=== PATIENT | female | born 1980 | race Caucasian/White ===

== ENCOUNTER 2019-04-02 11:11 | Emergency (ER) | payer SELFPAY ==
[2019-04-02] MEDS ORDERED: ACETAMINOPHEN 500 MG TAB ONE (11:49)
[2019-04-02] MEDS ORDERED: IBUPROFEN 400 MG TAB ONE (11:49)
--- NOTE | 2019-04-02 12:12 | RAD REPORT ---
EXAM DESCRIPTION: RAD - Knee Right 3 View - 04/02/2019 11:56 am CLINICAL HISTORY: Right knee pain and swelling COMPARISON: None. FINDINGS: No fracture, dislocation or periosteal reaction.Small joint effusion is seen. No joint spa ce narrowing. No foreign body or other soft tissue abnormality. IMPRESSION: Small joint effusion is suspected with no acute bone finding. Clinical concerns for internal derangement or occult bony injury could be further assessed with MR im aging.
--- NOTE | 2019-04-02 12:29 | ER ---
Nurse's Notes [facility] Name: Fatuma Elias Age: 38 yrs Sex: Female : 1980 Arrival Date: 04/02/2019 Time: 11:14 Bed 6 Private MD: Unknown, Unknown Diagnosis: Pain in right knee Presentation: 04/02 11:35 Presenting complaint: Patient states: R knee pain x 1 week. No known injury. Also ss reports over the past 2-3 days it has been getting swollen when she stands for over 1 hour. Transition of care: patient was not received from another setting of care. Onset of symptoms was March 26, 2019. Risk Assessment: Do you want to hurt yourself or someone else? Patient reports no desire to harm self or others. Initial Sepsis Screen: Does the patient meet any 2 criteria? No. Patient's initial sepsis screen is negative. Does the patient have a suspected source of infection? No. Patient's initial sepsis screen is negative. Care prior to arrival: None. 11:35 Method Of Arrival: Ambulatory ss 11:35 Acuity: YON 4 ss Historical: - Allergies: 11:42 PENICILLINS; ss 11:42 Sulfa (Sulfonamide Antibiotics); ss - Home Meds: 12:22 Wellbutrin Oral [Active]; Antihypertensive [Active]; aa5 - PMHx: 12:22 Hypertension; Depression; Anxiety; aa5 - Immunization history:: Adult Immunizations unknown. - Social history:: Smoking status: Patient uses tobacco products, denies chronic smoking, but will smoke occasionally. - Ebola Screening: : Patient denies exposure to infectious person Patient denies travel to an Ebola-affected area in the 21 days before illness onset. Screenin:22 Abuse screen: Denies threats or abuse. Nutritional screening: No deficits noted. aa5 Tuberculosis screening: No symptoms or risk factors identified. Fall Risk None identified. Assessment: 11:50 Reassessment: To bedside to administer medications, pt currently at radiology . aa5 12:21 Reassessment: Pt back from US . aa5 12:21 General: Appears comfortable, Behavior is calm, cooperative. Pain: Complains of pain in aa5 right knee Pain currently is 3 out of 10 on a pain scale. Quality of pain is described as aching, Is continuous, Aggravated by increased activity, weight bearing. Neuro: Level of Consciousness is awake, alert, obeys commands, Oriented to person, place, time, situation. Cardiovascular: Patient's skin is warm and dry. Respiratory: Airway is patent Respiratory effort is even, unlabored, Respiratory pattern is regular, symmetrical. GI: No signs and/or symptoms were reported involving the gastrointestinal system. : No signs and/or symptoms were reported regarding the genitourinary system. EENT: No signs and/or symptoms were reported regarding the EENT system. Derm: Skin is pink, warm \T\ dry. Musculoskeletal: Range of motion: intact in all extremities, Swelling present in right knee. 12:45 Reassessment: Patient is alert, oriented x 3, equal unlabored respirations, skin aa5 warm/dry/pink. 12:45 Reassessment: Adriano wrap applied to right knee . aa5 Vital Signs: 11:34 BP 120 / 75; Pulse 92; Resp 17; Pulse Ox 99% on R/A; Weight 108.86 kg; Height 5 ft. 9 ss in. (175.26 cm); Pain 3/10; 11:34 Body Mass Index 35.44 (108.86 kg, 175.26 cm) ss ED Course: 11:14 Patient arrived in ED. ag5 11:15 Unknown, Unknown is Private Physician. ag5 11:25 Bridger Romero PA is PHCP. cp 11:25 Colton Spence MD is Attending Physician. cp 11:29 Silvia Kennedy, KALEN is Primary Nurse. aa5 11:34 Arm band placed on left wrist. ss 11:41 Triage completed. ss 11:56 XRAY Knee RIGHT 3 view In Process Unspecified. EDMS 12:21 Patient has correct armband on for positive identification. Bed in low position. Call aa5 light in reach. Side rails up X 1. 12:25 Ultrasound completed. Patient tolerated well. sg3 12:27 US Extremity Venous Unilateral Ltd In Process Unspecified. EDMS 12:28 Martin Garner MD is Referral Physician. cp 12:45 No provider procedures requiring assistance completed. Patient did not have IV access aa5 during this emergency room visit. Administered Medications: 12:22 Drug: Ibuprofen 800 mg Route: PO; aa5 12:45 Follow up: Response: No adverse reaction aa5 12:22 Drug: Tylenol 1000 mg Route: PO; aa5 12:45 Follow up: Response: No adverse reaction aa5 Outcome: 12:29 Discharge ordered by . cp 12:43 Discharged to home ambulatory. aa5 12:43 Condition: stable 12:43 Discharge instructions given to patient, Instructed on discharge instructions, follow up and referral plans. medication usage, Demonstrated understanding of instructions, follow-up care, medications, Prescriptions given X 1. 12:45 Patient left the ED. aa5 Signatures: Dispatcher [employer] EDSilvia Cancino RN RN aa5 Brianna Gandhi RN RN ss Bridger Romero, PA PA Perla Smith 3 Sania Berrios 5
--- NOTE | 2019-04-02 12:30 | EDPHYS ---
Physician Documentation [facility] Name: Fatuma Elias Age: 38 yrs Sex: Female : 1980 Arrival Date: 04/02/2019 Time: 11:14 Bed 6 Private MD: Unknown, Unknown ED Physician Colton Spence HPI: 04/02 11:45 This 38 yrs old Female presents to ER via Ambulatory with complaints of Knee cp Pain. 11:45 The patient presents with pain, that is acute, swelling, tenderness. The complaints cp affect the posterior aspect of right knee and medial aspect of right knee. Context: resulted from an unknown cause, the patient can fully bear weight, the patient is able to ambulate. Onset: The symptoms/episode began/occurred 1 week(s) ago. Modifying factors: the symptoms are aggravated by movement, weight bearing. 11:45 Associated signs and symptoms: Pertinent positives: swelling, Pertinent negatives cp fever, numbness, warmth, weakness. Treatment prior to arrival includes: no previous treatment. Historical: - Allergies: 11:42 PENICILLINS; ss 11:42 Sulfa (Sulfonamide Antibiotics); ss - Home Meds: 12:22 Wellbutrin Oral [Active]; Antihypertensive [Active]; aa5 - PMHx: 12:22 Hypertension; Depression; Anxiety; aa5 - Immunization history:: Adult Immunizations unknown. - Social history:: Smoking status: Patient uses tobacco products, denies chronic smoking, but will smoke occasionally. - Ebola Screening: : Patient denies exposure to infectious person Patient denies travel to an Ebola-affected area in the 21 days before illness onset. ROS: 11:50 Constitutional: Negative for body aches, chills, fever, poor PO intake. cp 11:50 Eyes: Negative for injury, pain, redness, and discharge. cp 11:50 ENT: Negative for drainage from ear(s), ear pain, sore throat, difficulty swallowing, difficulty handling secretions. 11:50 Cardiovascular: Negative for chest pain. 11:50 Respiratory: Negative for cough, shortness of breath, wheezing. 11:50 Abdomen/GI: Negative for abdominal pain, nausea, vomiting, and diarrhea. 11:50 Back: Negative for injury or acute deformity, pain at rest, pain with movement. 11:50 MS/extremity: Positive for pain, swelling, tenderness, of the medial aspect of right knee and posterior aspect of right knee, Negative for injury or acute deformity, decreased range of motion, paresthesias. 11:50 Skin: Negative for cellulitis, rash. 11:50 Neuro: Negative for altered mental status, headache, numbness, weakness. 11:50 All other systems are negative. Exam: 12:00 Head/Face: Normocephalic, atraumatic. cp 12:00 Constitutional: The patient appears in no acute distress, alert, awake, non-toxic, well developed, well nourished. 12:00 Chest/axilla: Inspection: normal. 12:00 Cardiovascular: Rate: normal, Edema: is not appreciated. 12:00 Respiratory: the patient does not display signs of respiratory distress, Respirations: normal, no use of accessory muscles, no retractions. 12:00 Abdomen/GI: Inspection: abdomen appears normal. 12:00 Back: pain, is absent, ROM is normal. 12:00 Musculoskeletal/extremity: ROM: limited passive range of motion due to pain, in the right knee, Perfusion: the extremity is normally perfused throughout, Sensation intact. Joints: All joints are normal except the medial aspect of right knee and posterior aspect of right knee displays pain at rest, painful range of motion, swelling, tenderness, DVT Exam: no appreciated bluish discoloration, no erythema, no increased warmth, pain, that is mild, of the posterior knee, tenderness, that is mild, of the right leg. 12:00 Skin: cellulitis, is not appreciated, no rash present. cp Vital Signs: 11:34 BP 120 / 75; Pulse 92; Resp 17; Pulse Ox 99% on R/A; Weight 108.86 kg; Height 5 ft. 9 ss in. (175.26 cm); Pain 3/10; 11:34 Body Mass Index 35.44 (108.86 kg, 175.26 cm) ss MDM: 11:26 Patient medically screened. cp 12:00 Differential diagnosis: closed fracture, tendonitis, DVT, cellulitis. cp 12:27 ED course: US tech reports exam negative for DVT. cp 12:28 Data reviewed: vital signs, nurses notes, radiologic studies, plain films, ultrasound. cp 12:28 Test interpretation: by ED physician or midlevel provider: plain radiologic studies, cp xrays of right knee negative for fracture. Counseling: I had a detailed discussion with the patient and/or guardian regarding: the historical points, exam findings, and any diagnostic results supporting the discharge/admit diagnosis, radiology results, to return to the emergency department if symptoms worsen or persist or if there are any questions or concerns that arise at home. Response to treatment: the patient's symptoms have mildly improved after treatment, and as a result, I will discharge patient. ED course: VSS. Radiology studies negative for fracture and DVT. Recommend RICE and f/u with primary physician if pain continues. 04/02 11:44 Order name: XRAY Knee RIGHT 3 view cp 04/02 11:44 Order name: US Extremity Venous Unilateral Ltd cp 04/02 12:28 Order name: Adriano wrap-joint; Complete Time: 12:45 cp Administered Medications: 12:22 Drug: Ibuprofen 800 mg Route: PO; aa5 12:45 Follow up: Response: No adverse reaction aa5 12:22 Drug: Tylenol 1000 mg Route: PO; aa5 12:45 Follow up: Response: No adverse reaction aa5 Disposition: 15:38 Co-signature as Attending Physician, Colton Spence MD. gs Disposition: 04/02/19 12:29 Discharged to Home. Impression: Pain in right knee. - Condition is Stable. - Discharge Instructions: Knee Pain. - Prescriptions for Naprosyn 500 mg Oral Tablet - take 1 tablet by ORAL route 2 times per day take with food; 20 tablet. - Work release form, Medication Reconciliation Form, Thank You Letter, Antibiotic Education, Prescription Opioid Use form. - Follow up: Martin Garner MD; When: 5 - 6 days; Reason: Worsening of condition. - Problem is new. - Symptoms have improved. Signatures: Dispatcher [employer] EDSilvia Cancino, RN RN aa5 Brianna Gandhi RN RN ss Page, Corey, PA PA cp Colton Spence MD MD Corrections: (The following items were deleted from the chart) 12:45 12:29 04/02/2019 12:29 Discharged to Home. Impression: Pain in right knee. Condition is aa5 Stable. Forms are Medication Reconciliation Form, Thank You Letter, Antibiotic Education, Prescription Opioid Use. Follow up: Martin Garner; When: 5 - 6 days; Reason: Worsening of condition. Problem is new. Symptoms have improved. cp
[2019-04-02 13:15] VITALS: BP 120/75; O2SAT 99
--- NOTE | 2019-04-02 14:10 | RAD REPORT ---
EXAM DESCRIPTION: US - Extremity Venous Uni Ltd - 04/02/2019 12:27 pm CLINICAL HISTORY: Right leg pain and swelling COMPARISON: None. TECHNIQUE: Real-time sonographic evaluation of the right lower extremity deep venous systems was per formed. FINDINGS: Normal compressibility, flow augmentation, phasic flow and spontaneous flow are identified in the right lower extremity common femoral, superficial femoral, popliteal and posterior tibial vei ns. No intraluminal filling defects seen. IMPRESSION: No DVT in the right lower extremity.
== END 2019-04-02 12:45 | disposition home or self-care (01) ==
LOC: ER 11:11
DX: M25.561 Pain in right knee (principal); I10 Essential (primary) hypertension; F32.9 Major depressive disorder, single episode, unspecified; F41.9 Anxiety disorder, unspecified; Z72.0 Tobacco use; Z88.0 Allergy status to penicillin; Z88.2 Allergy status to sulfonamides
CPT/HCPCS: 93971; 99283

== ENCOUNTER 2019-08-01 15:44 | Inpatient (IN) | payer SELFPAY ==
[2019-08-01] MEDS ORDERED: NA CHLORIDE 0.9% 1,000 ML ONE (16:14)
--- NOTE | 2019-08-01 16:29 | RAD REPORT ---
EXAM DESCRIPTION: RAD - Chest Single View - 08/01/2019 4:19 pm CLINICAL HISTORY: SOB Chest pain. COMPARISON: No comparisons FINDINGS: Portable technique limits examination quality. The lungs are grossly clear. The heart is mildly enlarged in size. No displaced fractures. IMPRESSION: Mild cardiomegaly.
[2019-08-01 16:31] LABS: Absolute Lymphocytes (CBC) 4.6 K/uL (0.7-4.9); Basophils % 0.8 % (0-1.3); Hematocrit 43.6 % (36.0-45.0); Lymphocytes % 51.9 % (15.3-44.8); MPV 8.2 fL (7.6-11.3); RBC Red Blood Cell Count 4.79 M/uL (3.86-4.86)
[2019-08-01 16:34] LABS: Urine Blood NEGATIVE (NEG); Urine Glucose NEGATIVE (NEG); Urine Protein NEGATIVE (NEG); Urine Specific Gravity 1.025 (1.005-1.030); Urine pH 7.5 (5.0-7.0)
[2019-08-01 16:35] LABS: Protime INR 0.93
[2019-08-01 16:58] LABS: ALT/SGPT 182 U/L (12-78); AST/SGOT 143 U/L (15-37); Albumin 3.2 g/dL (3.4-5.0); Alkaline Phosphatase 104 U/L (45-117); BUN Blood Urea Nitrogen 6 mg/dL (7-18); Bicarbonate 25 mmol/L (21-32); Bilirubin Direct < 0.1 mg/dL (0-0.2); Bilirubin Total 0.2 mg/dL (0.2-1.0); Glucose Level 94 mg/dL (74-106); Lipase 84 U/L (73-393); Magnesium 2.1 mg/dL (1.8-2.4); NT PRO-BNP 19 pg/mL (<125); Potassium 4.1 mmol/L (3.5-5.1); Protein, Total 7.4 g/dL (6.4-8.2); Sodium Level 137 mmol/L (136-145); Troponin (Emerg Dept Use Only) < 0.02 ng/mL (0.0-0.045)
--- NOTE | 2019-08-01 17:10 | RAD REPORT ---
EXAM DESCRIPTION: CT - Chest For Pe Angio - 08/01/2019 5:02 pm CLINICAL HISTORY: Chest pain. SOB COMPARISON: No comparisons TECHNIQUE: CT angiogram of the pulmonary arteries was performed with MIP. All CT scans are performed using dose optimization technique as appropriate and may include automated exposure control or mA/KV adjustment according to patient size. FINDINGS: Several filling defects are seen in the left lower pulmonary arterial tree segmental and s ubsegmental branches suspicious for pulmonary embolism. No RV strain pattern observed. No acute aortic finding demonstrated. The lungs are clear. No significant pericardial or pleural fluid. No concerning bony finding. IMPRESSION: Positive for pulmonary thromboembolism in the left lower lobe pulmonary arterial tree yoni davis.
--- NOTE | 2019-08-01 17:17 | RAD REPORT ---
EXAM DESCRIPTION: CTAbdomen Pelvis W Contrast - 08/01/2019 5:02 pm CLINICAL HISTORY: Abdominal pain. ABD PAIN COMPARISON: No comparisons TECHNIQUE: Biphasic CT imaging of the abdomen and pelvis was performed with 100 ml non-ionic IV cont rast. All CT scans are performed using dose optimization technique as appropriate and may include automated exposure control or mA/KV adjustment according to patient size. FINDINGS: The lung bases are clear. The liver, spleen, pancreas, adrenal glands and kidneys are within normal limits. No bowel obstruction, free air, free fluid or abscess. The appendix is normal. No evidence of signi ficant lymphadenopathy. No suspicious bony findings. IMPRESSION: No acute intra-abdominal or pelvic finding.
--- NOTE | 2019-08-01 17:46 | ER ---
Nurse's Notes [facility] Name: Fatuma Elias Age: 38 yrs Sex: Female : 1980 Arrival Date: 08/01/2019 Time: 15:49 Bed 5 Private MD: Diagnosis: Pulmonary embolism Presentation: 08/01 15:54 Presenting complaint: SOB, malaise, lower abdominal pain, N/V, and subjective fever x hb 2-3 days. Transition of care: patient was not received from another setting of care. Onset of symptoms was July 30, 2019. Risk Assessment: Do you want to hurt yourself or someone else? Patient reports no desire to harm self or others. Care prior to arrival: None. 15:54 Method Of Arrival: Ambulatory hb 15:54 Acuity: YON 3 hb 16:03 Initial Sepsis Screen: Does the patient meet any 2 criteria? HR > 90 bpm. Does the tw2 patient have a suspected source of infection? No. Patient's initial sepsis screen is negative. HOME CARE COMPANION: 15:55 LMP 07/17/2019 hb Historical: - Allergies: 15:55 Sulfa (Sulfonamide Antibiotics); hb 15:55 PENICILLINS; hb - PMHx: 15:55 Anxiety; Depression; Hypertension; hb - PSHx: 15:55 None; hb - Immunization history:: Adult Immunizations up to date. - Coronavirus screen:: The patient has NOT traveled to [place] in the past 14 days. The patient has NOT had contact with known/suspected case of Coronavirus? Proceed with normal triage procedures. - Social history:: Smoking status: Patient reports the use of cigarette tobacco products, smokes one-half pack cigarettes per day, Smoking status: Reported history of juuling and/or vaping. Patient uses alcohol, occasionally. " couple of times a week". - Ebola Screening: : No symptoms or risks identified at this time. Screenin:00 Abuse screen: Denies threats or abuse. Nutritional screening: No deficits noted. tw2 Tuberculosis screening: No symptoms or risk factors identified. Fall Risk None identified. Assessment: 16:25 General: Appears in no apparent distress. obese, well groomed, Behavior is calm, tw2 cooperative, appropriate for age. Pain: Complains of pain in abdomen. Neuro: Level of Consciousness is awake, alert, obeys commands, Oriented to person, place, time, situation. Cardiovascular: Heart tones S1 S2 Patient's skin is warm and dry. Respiratory: Airway is patent Respiratory effort is even, unlabored, Respiratory pattern is regular, symmetrical, Breath sounds are clear bilaterally. GI: Abdomen is round non-distended, Bowel sounds present X 4 quads. Abd is soft and non tender X 4 quads. : No signs and/or symptoms were reported regarding the genitourinary system. EENT: No signs and/or symptoms were reported regarding the EENT system. Derm: No signs and/or symptoms reported regarding the dermatologic system. Musculoskeletal: Range of motion: intact in all extremities, pt reports "fatigue and i get winded and am just tired all the time". 17:30 Reassessment: Patient appears in no apparent distress at this time. No changes from tw2 previously documented assessment. Patient and/or family updated on plan of care and expected duration. Pain level reassessed. Patient is alert, oriented x 3, equal unlabored respirations, skin warm/dry/pink. 18:30 Reassessment: Patient appears in no apparent distress at this time. No changes from tw2 previously documented assessment. Patient and/or family updated on plan of care and expected duration. Pain level reassessed. Patient is alert, oriented x 3, equal unlabored respirations, skin warm/dry/pink. 19:15 Reassessment: Patient appears in no apparent distress at this time. Patient and/or jb4 family updated on plan of care and expected duration. Pain level reassessed. PT is alert and oriented x4. Denies pain or SOB. Respiratory: Airway is patent Respiratory effort is even, unlabored, Respiratory pattern is regular, symmetrical, Breath sounds are clear bilaterally. 20:09 Reassessment: Patient appears in no apparent distress at this time. Patient and/or jb4 family updated on plan of care and expected duration. Pain level reassessed. Patient is alert, oriented x 3, equal unlabored respirations, skin warm/dry/pink. PT transferred upstairs via stretcher. Denies pain or SOB. IV converted to saline lock, flushes and draws blood with ease. No s/s of infiltration, site is dry and intact. Vital Signs: 15:55 BP 142 / 91; Pulse 110; Resp 16; Temp 98.5; Pulse Ox 100% on R/A; Weight 107.5 kg; hb Height 5 ft. 9 in. (175.26 cm); Pain 2/10; 16:27 BP 122 / 94; Pulse 103; Resp 17; Pulse Ox 98% on R/A; tw2 17:30 BP 129 / 84; Pulse 96; Resp 17; Pulse Ox 96% on R/A; tw2 18:30 BP 121 / 87; Pulse 91; Resp 17; Pulse Ox 95% on R/A; tw2 19:20 BP 117 / 61; Pulse 91; Resp 14; Pulse Ox 100% on R/A; jb4 15:55 Body Mass Index 35.00 (107.50 kg, 175.26 cm) hb ED Course: 15:49 Patient arrived in ED. ag5 15:55 Triage completed. hb 15:55 Arm band placed on. hb 15:57 Rip Munguia NP is PHCP. pm1 15:57 Alec Montano MD is Attending Physician. pm1 16:00 María Merrill RN is Primary Nurse. tw2 16:00 Bed in low position. Call light in reach. tw2 16:20 Inserted saline lock: 20 gauge in right antecubital area, using aseptic technique. tw2 Blood collected. 16:27 Flu Sent. tw2 16:36 Urine --Ancillary (enter results) Sent. sv 16:36 Urine Dipstick--Ancillary (enter results) Sent. sv 16:36 Butler Screen Profile Sent. sv 16:36 Lipase Sent. sv 16:36 D-Dimer Sent. sv 16:37 Basic Metabolic Panel Sent. sv 16:37 CBC with Diff Sent. sv 16:37 LFT's Sent. sv 16:37 Magnesium Sent. sv 16:37 NT PRO-BNP Sent. sv 16:37 PT-INR Sent. sv 16:37 Troponin (emerg Dept Use Only) Sent. sv 16:37 XRAY Chest (1 view) Sent. sv 16:43 Notified Nurse Practitioner and/or Physician Compliance Nurse of a critical lab result(s), tw2 D-Dimer 4661, Rip Zaragoza NP notified. pt placed on Strict BEDREST, sign on door alerting staff. 17:38 Bi Guajardo MD is Hospitalizing Provider. pm1 18:44 No provider procedures requiring assistance completed. tw2 19:00 Report given to KALEN Baer and KALEN Waite. tw2 20:09 IV is patent, is intact, with fluids infusing freely, with good blood return, Flushed jb4 right antecubital with 5 ml normal saline Converted IV to saline lock on right antecubital area Patient admitted, IV remains in place. Administered Medications: 16:27 Drug: NS 0.9% 1000 ml Route: IV; Rate: 1000 ml; Site: right antecubital; tw2 18:00 Follow up: Response: No adverse reaction; IV Status: Completed infusion; IV Intake: tw2 1000ml 20:13 Follow up: Response: No adverse reaction; IV Status: Completed infusion; IV Intake: jb4 1000ml 18:05 Drug: Lovenox 1 mg/kg Route: Sub-Q; Site: right lower abdomen; tw2 18:42 Follow up: Response: No adverse reaction tw2 Intake: 18:00 IV: 1000ml; Total: 1000ml. tw2 20:13 IV: 1000ml; Total: 2000ml. jb4 Outcome: 17:38 Decision to Hospitalize by Provider. pm1 20:09 Admitted to Tele accompanied by tech, via stretcher, room 409, with chart, Report jb4 called to KALEN Rios 20:09 Condition: stable 20:09 Discharge instructions given to patient, Instructed on the need for admit, Demonstrated understanding of instructions. 20:14 Patient left the ED. jb4 Signatures: Anastasia Nevarez RN RN Rip Munguia NP UPSET WELDING MACHINE OPERATOR pm1 Leora Dalton RN RN María Merrill RN RN tw2 Tian Ayala RN RN jb4 Sania Berrios ag5 Corrections: (The following items were deleted from the chart) 16:55 16:53 Notified Nurse Practitioner and/or Physician Compliance Nurse of a critical lab tw2 result(s), D-Dimer 4661, Rip ZaragozaUPSET WELDING MACHINE OPERATOR notified. pt placed on Strict BEDREST, sign on door alerting staff. tw2 18:43 18:43 BP 121 / 27; Pulse 91bpm; Resp 17bpm; Pulse Ox 95% RA; tw2 tw2 19:24 18:30 BP 121 / 27; Pulse 91bpm; Resp 17bpm; Pulse Ox 95% RA; tw2 tw2
--- NOTE | 2019-08-01 17:46 | EDPHYS ---
Physician Documentation [facility] Name: Fatuma Elias Age: 38 yrs Sex: Female : 1980 Arrival Date: 08/01/2019 Time: 15:49 Bed 5 Private MD: ED Physician Alec Montano HPI: 08/01 16:04 This 38 yrs old Female presents to ER via Ambulatory with complaints of pm1 Abdominal Pain, Breathing Difficulty. 16:04 The patient has shortness of breath at rest, worse with trying to exercise. Onset: The pm1 symptoms/episode began/occurred 5 day(s) ago. Duration: The symptoms are continuous. The patient's shortness of breath is aggravated by light activity, is alleviated by nothing. Associated signs and symptoms: Pertinent positives: subjective fever for the past 2-3 days, decreased energy, nausea and vomiting with lower abdominal pain. Patient concerned that she might have the flu. Just broke up with her boyfriend because he cheated on her. Believes that he symptoms could also be mono. Just recently started BC pills 2 months ago, Pertinent negatives: chest pain, non-productive cough, productive cough. Severity of symptoms: in the emergency department the symptoms are unchanged. The patient has not experienced similar symptoms in the past. The patient has not recently seen a physician. MED ASST: 15:55 LMP 07/17/2019 hb Historical: - Allergies: 15:55 Sulfa (Sulfonamide Antibiotics); hb 15:55 PENICILLINS; hb - PMHx: 15:55 Anxiety; Depression; Hypertension; hb - PSHx: 15:55 None; hb - Immunization history:: Adult Immunizations up to date. - Coronavirus screen:: The patient has NOT traveled to [place] in the past 14 days. The patient has NOT had contact with known/suspected case of Coronavirus? Proceed with normal triage procedures. - Social history:: Smoking status: Patient reports the use of cigarette tobacco products, smokes one-half pack cigarettes per day, Smoking status: Reported history of juuling and/or vaping. Patient uses alcohol, occasionally. " couple of times a week". - Ebola Screening: : No symptoms or risks identified at this time. ROS: 16:04 Constitutional: Negative for fever, chills, and weight loss, Neck: Negative for injury, pm1 pain, and swelling, Cardiovascular: Negative for chest pain, palpitations, and edema. 16:04 Back: Negative for injury and pain, MS/Extremity: Negative for injury and deformity, Skin: Negative for injury, rash, and discoloration, Neuro: Negative for headache, weakness, numbness, tingling, and seizure. 16:04 Respiratory: Positive for shortness of breath, Negative for cough, sputum production, wheezing. 16:04 Abdomen/GI: Positive for abdominal pain, nausea and vomiting, of the right lower quadrant and left lower quadrant, Negative for diarrhea, constipation. Exam: 16:04 Constitutional: This is a well developed, well nourished patient who is awake, alert, pm1 and in no acute distress. Head/Face: Normocephalic, atraumatic. Neck: Trachea midline, no thyromegaly or masses palpated, and no cervical lymphadenopathy. Supple, full range of motion without nuchal rigidity, or vertebral point tenderness. No Meningismus. Chest/axilla: Normal chest wall appearance and motion. Nontender with no deformity. No lesions are appreciated. Cardiovascular: Regular rate and rhythm with a normal S1 and S2. No gallops, murmurs, or rubs. Normal PMI, no JVD. No pulse deficits. Respiratory: Lungs have equal breath sounds bilaterally, clear to auscultation and percussion. No rales, rhonchi or wheezes noted. No increased work of breathing, no retractions or nasal flaring. Abdomen/GI: Soft, non-tender, with normal bowel sounds. No distension or tympany. No guarding or rebound. No evidence of tenderness throughout. Back: No spinal tenderness. No costovertebral tenderness. Full range of motion. Skin: Warm, dry with normal turgor. Normal color with no rashes, no lesions, and no evidence of cellulitis. MS/ Extremity: Pulses equal, no cyanosis. Neurovascular intact. Full, normal range of motion. 16:04 Musculoskeletal/extremity: DVT Exam: No signs of deep vein thrombosis. no pain, no swelling, no tenderness, no erythema, no increased warmth, Calves: are non-tender. 16:04 Neuro: Orientation: is normal, Motor: is normal, no acute changes, moves all fours. 16:04 Psych: Behavior/mood is cooperative, anxious, Affect is animated, Oriented to person, place, time. Vital Signs: 15:55 BP 142 / 91; Pulse 110; Resp 16; Temp 98.5; Pulse Ox 100% on R/A; Weight 107.5 kg; hb Height 5 ft. 9 in. (175.26 cm); Pain 2/10; 16:27 BP 122 / 94; Pulse 103; Resp 17; Pulse Ox 98% on R/A; tw2 17:30 BP 129 / 84; Pulse 96; Resp 17; Pulse Ox 96% on R/A; tw2 18:30 BP 121 / 87; Pulse 91; Resp 17; Pulse Ox 95% on R/A; tw2 19:20 BP 117 / 61; Pulse 91; Resp 14; Pulse Ox 100% on R/A; jb4 15:55 Body Mass Index 35.00 (107.50 kg, 175.26 cm) hb MDM: 15:57 Patient medically screened. pm1 17:38 Data reviewed: vital signs. Data interpreted: Pulse oximetry: on room air is 98 %. pm1 Interpretation: normal. 17:38 Counseling: I had a detailed discussion with the patient and/or guardian regarding: the pm1 historical points, exam findings, and any diagnostic results supporting the discharge/admit diagnosis, lab results, radiology results, the need for further work-up and treatment in the hospital. 17:46 Physician consultation: Bi Guajardo MD was called at 17:46, was contacted at 17:46, pm1 regarding admission, and will see patient in ED. 08/01 16:04 Order name: Basic Metabolic Panel pm1 08/01 16:04 Order name: CBC with Diff pm1 08/01 16:04 Order name: LFT's pm08/01 16:04 Order name: Magnesium pm1 08/01 16:04 Order name: NT PRO-BNP pm1 08/01 16:04 Order name: PT-INR pm1 08/01 16:04 Order name: Troponin (emerg Dept Use Only) pm1 08/01 16:04 Order name: D-Dimer pm1 08/01 16:04 Order name: Lipase pm1 08/01 16:04 Order name: [place] Screen Profile pm1 08/01 16:04 Order name: Flu pm1 08/01 16:30 Order name: Urine Dipstick--Ancillary (enter results) bd 08/01 16:30 Order name: Urine --Ancillary (enter results) bd 08/01 16:38 Order name: CBC with Automated Diff; Complete Time: 16:38 EDMS 08/01 16:04 Order name: XRAY Chest (1 view) pm08/01 16:38 Order name: Urine --Ancillary; Complete Time: 16:38 EDMS 08/01 16:38 Order name: Urine Dipstick-Ancillary; Complete Time: 16:39 EDMS 08/01 16:43 Order name: Protime (+INR); Complete Time: 16:46 EDMS 08/01 16:43 Order name: D-Dimer; Complete Time: 16:46 EDMS 08/01 16:47 Order name: [place] Screen; Complete Time: 16:50 EDMS 08/01 16:50 Order name: CT Chest For PE Angio pm08/01 16:50 Order name: CT Abd/Pelvis - IV Contrast Only pm08/01 16:52 Order name: Influenza Screen (A ; Complete Time: 16:55 EDMS 08/01 16:59 Order name: Basic Metabolic Panel; Complete Time: 17:05 EDMS 08/01 16:59 Order name: Liver (Hepatic) Function; Complete Time: 17:05 EDMS 08/01 16:59 Order name: Troponin (Emerg Dept Use Only); Complete Time: 17:05 EDMS 08/01 16:59 Order name: NT PRO-BNP; Complete Time: 17:05 EDMS 08/01 16:59 Order name: Magnesium; Complete Time: 17:05 EDMS 08/01 16:59 Order name: Lipase; Complete Time: 17:05 EDMS 08/01 17:20 Order name: RAD; Complete Time: 17:23 EDMS 08/01 16:04 Order name: EKG; Complete Time: 16:06 pm08/01 16:04 Order name: Cardiac monitoring; Complete Time: 16:10 pm08/01 16:04 Order name: EKG - Nurse/Tech; Complete Time: 16:27 pm08/01 16:04 Order name: IV Saline Lock; Complete Time: 16:27 pm08/01 16:04 Order name: Labs collected and sent; Complete Time: 16:27 pm08/01 16:04 Order name: O2 Per Protocol; Complete Time: 16:10 pm08/01 16:04 Order name: O2 Sat Monitoring; Complete Time: 16:10 pm1 08/01 17:24 Order name: Extrem Venous W Compression Gilbert US pm1 08/01 18:39 Order name: CT; Complete Time: 18:41 EDMS 08/01 18:39 Order name: CT; Complete Time: 18:41 EDMS 08/01 20:14 Order name: US; Complete Time: 23:19 EDMS Administered Medications: 16:27 Drug: NS 0.9% 1000 ml Route: IV; Rate: 1000 ml; Site: right antecubital; tw2 18:00 Follow up: Response: No adverse reaction; IV Status: Completed infusion; IV Intake: tw2 1000ml 20:13 Follow up: Response: No adverse reaction; IV Status: Completed infusion; IV Intake: jb4 1000ml 18:05 Drug: Lovenox 1 mg/kg Route: Sub-Q; Site: right lower abdomen; tw2 18:42 Follow up: Response: No adverse reaction tw2 Disposition: 08/02 11:09 Co-signature as Attending Physician, Alec Montano MD I agree with the assessment and tw4 plan of care. Disposition: 08/01/19 17:38 Hospitalization ordered by Bi Guajardo for Inpatient Admission. Preliminary diagnosis is Pulmonary embolism. - Bed requested for Telemetry/MedSurg (Inpatient). - Status is Inpatient Admission. jb4 - Condition is Stable. - Problem is new. - Symptoms are unchanged. Signatures: Dispatcher [facility] Jovita Buenrostro RN RN Rip Munguia, GRICELDA WOOD MILLING MACHINE TENDER pm1 Leora Dalton RN RN María Merrill RN RN tw2 Tian Ayala RN RN jb4 Alec Montano MD MD tw4 Corrections: (The following items were deleted from the chart) 08/01 18:07 17:38 Hospitalization Ordered by Bi Guajardo MD for Observation. Preliminary pm1 diagnosis is Pulmonary embolism. Bed requested for Telemetry/MedSurg (observation). Status is Observation. Condition is Stable. Problem is new. Symptoms are unchanged. pm1 19:13 18:07 08/01/2019 17:38 Hospitalization Ordered by Bi Guajardo MD for Inpatient mw Admission. Preliminary diagnosis is Pulmonary embolism. Bed requested for Telemetry/MedSurg (Inpatient). Status is Inpatient Admission. Condition is Stable. Problem is new. Symptoms are unchanged. pm1 20:14 19:13 08/01/2019 17:38 Hospitalization Ordered by Bi Guajardo MD for Inpatient jb4 Admission. Preliminary diagnosis is Pulmonary embolism. Bed requested for Telemetry/MedSurg (Inpatient). Status is Inpatient Admission. Condition is Stable. Problem is new. Symptoms are unchanged. mw
[2019-08-01] MEDS ORDERED: ENOXAPARIN 100 MG/ML SYR SQ ONE (18:05)
[2019-08-01] MEDS ORDERED: ALBUTEROL 2.5 MG/3 ML NEB SOL NEB PRN (18:22)
[2019-08-01] MEDS ORDERED: ACETAMINOPHEN 500 MG TAB PO PRN (18:22)
--- NOTE | 2019-08-01 18:32 | P.HP ---
Certification for Inpatient Patient admitted to: Inpatient With expected LOS: >2 Midnights Patient will require the following post-hospital care: None Practitioner: I am a practitioner with admitting privileges, knowledge of patient current condition, hospital course, and medical plan of care. Services: Services provided to patient in accordance with Admission requirements found in Title 42 Section 412.3 of the Code of Federal Regulations Patient History Date of Service: 08/02/19 Reason for admission: SOB History of Present Illness: 38-year-old female with past medical history of anxiety who has recently been on oral contraceptive pills came with shortness of breath and chest discomfort which has been going on for 1 week which was progressively worsening and was brought to ER. Denies any fever or chills No cough. Shortness of breath worse with exertion. No nausea vomiting or diarrhea. Also complaining of palpitation. No sick contacts No recent travel Denies any family history of blood clots Allergies Penicillins Allergy (Verified 08/01/19 20:20) Hives/Rash Sulfa (Sulfonamide Antibiotics) Allergy (Verified 08/01/19 20:20) Hives/Rash Home medications list reviewed: Yes Home Medications: Metoprolol Tartrate [Lopressor*] 1 tab PO DAILY 08/01/19 - Past Medical/Surgical History Past Medical History: Reviewed- Non-Contributory Past Surgical History: Reviewed- Non-Contributory - Family History Family History: Reviewed- Non-Contributory - Family History Mother -: Heart disease Notes: heart failure Father -: Heart disease, Hypertension, Diabetes, Other (see notes) Brother History Unknown: Yes -: Heart disease Notes: heart failure - Social History Smoking Status: Current some day smoker Review of Systems 10-point ROS is otherwise unremarkable Physical Examination - Vital Signs Temperature: 98.5 F Blood Pressure: 162/90 Pulse: 88 Respirations: 20 Pulse Ox (%): 97 - Physical Exam General: Alert, In no apparent distress, Oriented x3 HEENT: Atraumatic, Normocephalic Neck: Supple Respiratory: Clear to auscultation bilaterally, Normal air movement Cardiovascular: Normal pulses, Regular rate/rhythm Capillary refill: <2 Seconds Gastrointestinal: Soft and benign, Non-distended, W/out hepatosplenomegaly Musculoskeletal: No clubbing, No swelling Integumentary: No rashes Neurological: Normal speech, Normal strength at 5/5 x4 extr Lymphatics: No axilla or inguinal lymphadenopathy Urinary: Other (No bladder distention) External genitalia: Deferred Rectal: Deferred - Studies Laboratory Data (last 24 hrs) 08/01/19 16:18: PT 11.0, INR 0.93 08/01/19 16:18: WBC 8.9, Hgb 14.4, Hct 43.6, Plt Count 197 08/01/19 16:18: Sodium 137, Potassium 4.1, BUN 6 L, Creatinine 0.80, Glucose 94 , Magnesium 2.1, Total Bilirubin 0.2, AST 143 H, ALT 182 H, Alkaline Phosphatase 104, Lipase 84 Microbiology Data (last 24 hrs): 08/01/19 16:15 Nasopharnyx Influenza Type A Antigen Screen - Final 08/01/19 16:15 Nasopharnyx Influenza Type B Antigen Screen - Final Assessment and Plan - Problems (Diagnosis) (1) Pulmonary emboli Current Visit: Yes Status: Acute (2) Oral contraceptive use Current Visit: Yes Status: Acute (3) Shortness of breath Current Visit: Yes Status: Acute Plan: Pulmonary embolus Possibly induced by oral contraceptive pills Will stop oral contraceptive pills start on Lovenox discussed in detail with the patient regarding different medications including Coumadin, Xarelto, liquids will get an echocardiogram Will get Doppler lower extremity Coagulation workup with factor 5 Leiden, ANCA, GREG Oxygen support Monitor closely under telemetry - Advance Directives Does patient have a Living Will: No Does patient have a Durable POA for Healthcare: No Time Spent Managing Pts Care (In Minutes): 45
--- NOTE | 2019-08-01 18:44 | RAD REPORT ---
EXAM DESCRIPTION: US - Extrem Venous W Compress Gilbert - 08/01/2019 6:35 pm CLINICAL HISTORY: Positive for PE Bilateral leg edema and swelling. COMPARISON: No comparisonsExtremity Venous Uni Ltd dated 04/02/2019 TECHNIQUE: Real-time sonographic interrogation of the left and right lower extremity deep venous sys tems was performed. FINDINGS: Normal compressibility, flow augmentation, phasic flow and spontaneous flow is identified in both the left and right lower extremity deep venous systems. IMPRESSION: No sonographic evidence of left or right lower extremity deep venous thrombosis.
[2019-08-01 20:31] VITALS: BMI 37.4
[2019-08-01 21:53] LABS: Urine Appearance CLEAR; Urine Bilirubin NEGATIVE (NEG); Urine Blood NEGATIVE (NEG); Urine Color YELLOW; Urine Glucose NEGATIVE (NEG); Urine Protein NEGATIVE (NEG); Urine Specific Gravity >=1.030 (1.005-1.030); Urine Urobilinogen 0.2 mg/dL (0.2-1.0)
[2019-08-01 21:56] LABS: Urine Microscopic Reflex NO UMIC
[2019-08-01] MEDS: ZOLPIDEM TARTRATE 5 MG TABLET PO SCH (22:05)
[2019-08-02] MEDS: HYDROCODONE/APAP 7.5/325 MG TAB PO PRN ×4 (05:42→23:00)
[2019-08-02 05:50] LABS: Absolute Lymphocytes (CBC) 4.6 K/uL (0.7-4.9); Basophils % 0.5 % (0-1.3); Hematocrit 41.4 % (36.0-45.0); Lymphocytes % 55.9 % (15.3-44.8); MPV 8.4 fL (7.6-11.3); RBC Red Blood Cell Count 4.55 M/uL (3.86-4.86)
[2019-08-02 06:11] LABS: Protime INR 0.98
[2019-08-02 06:18] LABS: Albumin 2.8 g/dL (3.4-5.0); Bilirubin Total 0.2 mg/dL (0.2-1.0); Phosphorus 3.3 mg/dL (2.5-4.9); Protein, Total 6.5 g/dL (6.4-8.2)
[2019-08-02 07:48] LABS: Blood Morphology Comment NOT SEEN (NOT SEEN); Platelet Estimate ADEQ
[2019-08-02] MEDS ORDERED: INFLUENZA VACCINE (for 3y+) 0.5 ML DOSE IMVAC ONE (08:00)
[2019-08-02] MEDS ORDERED: ENOXAPARIN 100 MG/ML SYR SQ SCH (09:00)
--- NOTE | 2019-08-02 09:29 | P.PN ---
Subjective Date of Service: 08/02/19 Chief Complaint: SOB Subjective: No new changes, Improving Review of Systems 10-point ROS is otherwise unremarkable Physical Examination - Vital Signs Temperature: 97.9 F Blood Pressure: 122/59 Pulse: 82 Respirations: 18 Pulse Ox (%): 95 - Physical Exam General: Alert, In no apparent distress HEENT: Atraumatic, Normocephalic Neck: Supple Respiratory: Clear to auscultation bilaterally, Normal air movement Cardiovascular: No edema, Normal pulses, Regular rate/rhythm Capillary refill: <2 Seconds Gastrointestinal: Soft and benign, W/out hepatosplenomegaly Musculoskeletal: No clubbing, No swelling Integumentary: No rashes Neurological: Normal speech, Normal strength at 5/5 x4 extr Lymphatics: No axilla or inguinal lymphadenopathy Urinary: Other (No bladder distention) External genitalia: Deferred Rectal: Deferred - Studies Laboratory Data (last 24 hrs) 08/01/19 16:18: PT 11.0, INR 0.93 08/01/19 16:18: WBC 8.9, Hgb 14.4, Hct 43.6, Plt Count 197 08/01/19 16:18: Sodium 137, Potassium 4.1, BUN 6 L, Creatinine 0.80, Glucose 94 , Magnesium 2.1, Total Bilirubin 0.2, AST 143 H, ALT 182 H, Alkaline Phosphatase 104, Lipase 84 Microbiology Data (last 24 hrs): 08/01/19 16:15 Nasopharnyx Influenza Type A Antigen Screen - Final 08/01/19 16:15 Nasopharnyx Influenza Type B Antigen Screen - Final Assessment & Plan - Problems (Diagnosis) (1) Pulmonary emboli Current Visit: Yes Status: Acute (2) Oral contraceptive use Current Visit: Yes Status: Acute (3) Shortness of breath Current Visit: Yes Status: Acute Plan: Pulmonary embolus Possibly induced by oral contraceptive pills Will stop oral contraceptive pills started on Lovenox yesterday discussed in detail with the patient regarding different medications including Coumadin, Xarelto, Eliquis Patient chose Eliquis Will start on Eliquis 10 mg p.o. b.i.d. for 5-7 days and then change to 5 mg p.o. b.i.d. Awaiting echocardiogram and Doppler lower extremity Coagulation workup with factor 5 Leiden, ANCA, GREG still pending Monitor closely under telemetry Possible Dc in a.m. Time Spent Managing Pts Care (In Minutes): 42
[2019-08-02] MEDS: APIXABAN 5 MG TABLET PO SCH ×2 (10:24→20:04)
--- NOTE | 2019-08-02 11:28 | ECHO ---
HEIGHT: 5 ft 9 in WEIGHT: 253 lb 6.4 oz DATE OF STUDY: 08/02/[address]: Sherif Guajardo DO 2-DIMENSIONAL: YES M.MODE: YES DOPPLER: YES COLOR FLOW: YES TDS: NO PORTABLE: NO DEFINITY: NO BUBBLE STUDY: NO DIAGNOSIS: PULMONARY EMBOLISM CARDIAC HISTORY: CATHERIZATION: NO SURGERY: NO PROSTHETIC VALVE: NO PACEMAKER: NO MEASUREMENTS (cm) DIASTOLIC (NORMALS) SYSTOLIC (NORMALS) IVSd 1.1 (0.6-1.2) LA Diam 3.4 (1.9-4.0) LVEF 76% LVIDd 3.3 (3.5-5.7) LVIDs 1.9 (2.0-3.5) %FS 44% LVPWd 1.2 (0.6-1.2) Ao Diam 2.8 (2.0-3.7) 2 DIMENSIONAL ASSESSMENT: RIGHT ATRIUM: NORMAL LEFT ATRIUM: NORMAL RIGHT VENTRICLE: NORMAL LEFT VENTRICLE: NORMAL TRICUSPID VALVE: NORMAL MITRAL VALVE: NORMAL PULMONIC VALVE: NORMAL AORTIC VALVE: NORMAL PERICARDIAL EFFUSION: NONE AORTIC ROOT: NORMAL LEFT VENTRICULAR WALL MOTION: NORMAL DOPPLER/COLOR FLOW: TRACE PULMONIC REGURGITATION. COMMENTS: NORMAL 2D ECHOCARDIOGRAM. TRACE PULMONIC REGURGITATION. NORMAL RIGHT VENTRICULAR SYSTOLIC PRESSURE. TECHNOLOGIST: Teddy DILLON
--- NOTE | 2019-08-02 15:27 | EKG ---
Test Date: 2019-08-01 Test Time: 16:30:44 Mold Preparer: BROCK MEASUREMENT RESULTS: Intervals: Rate: 95 ID: [id number] QRSD: 80 QT: 342 QTc: 429 [place]: P: 40 ID: [id number] QRS: 103 T: 20 INTERPRETIVE STATEMENTS: Normal sinus rhythm Rightward axis Cannot rule out Anterior infarct, age undetermined Abnormal ECG No previous ECG available for comparison Electronically Signed On 08-02-19 15:25:00 PROFESSIONAL PROGRAMMER ANALYST by Danny Orona
[2019-08-02] MEDS: ONDANSETRON 4 MG/2 ML VIAL IV PRN ×2 (16:19→23:00)
[2019-08-02] MEDS: ZOLPIDEM TARTRATE 5 MG TABLET PO SCH (20:04)
[2019-08-03 06:02] LABS: Absolute Lymphocytes (CBC) 5.3 K/uL (0.7-4.9); Basophils % 0.5 % (0-1.3); Hematocrit 38.7 % (36.0-45.0); Lymphocytes % 60.5 % (15.3-44.8); MPV 8.2 fL (7.6-11.3); RBC Red Blood Cell Count 4.25 M/uL (3.86-4.86)
[2019-08-03 08:25] VITALS: BP 112/58; TEMP 97.3
[2019-08-03] MEDS: APIXABAN 5 MG TABLET PO SCH (08:28)
--- NOTE | 2019-08-03 09:36 | P.DS ---
Admission Date: 08/03/19 Discharge Date: 08/03/19 Disposition: ROUTINE DISCHARGE Discharge Condition: GOOD Reason for Admission: SOB - Problems (1) Pulmonary emboli Status: Acute (2) Oral contraceptive use Status: Chronic (3) Shortness of breath Status: Acute Brief History of Present Illness: 38-year-old female with past medical history of anxiety who has recently been on oral contraceptive pills came with shortness of breath and chest discomfort which has been going on for 1 week which was progressively worsening and was brought to ER. Denies any fever or chills No cough. Shortness of breath worse with exertion. No nausea vomiting or diarrhea. Also complaining of palpitation. No sick contacts No recent travel Denies any family history of blood clots Hospital Course: Pulmonary embolus Possibly induced by oral contraceptive pills Advised to stop oral contraceptive pills started on Lovenox initially discussed in detail with the patient regarding different medications including Coumadin, Xarelto, Eliquis Patient chose Eliquis Started on Eliquis 10 mg p.o. b.i.d. for 7 days and then change to 5 mg p.o. b.i.d. Echocardiogram was done do not show any RV strain Coagulation workup with factor 5 Leiden, ANCA, GREG still pending but want to follow up as an outpatient Patient wanted go home and is being discharged today in a stable condition with advice to follow up with PCP in 1 week Free trial coupon for Eliquis was provided to the patient, she is currently uninsured, stated that she is working on getting insurance back as soon as possible. Discuss with her about the need to be compliant with medications and she verbalizes understanding . She has a PCP whom she will be following in next week itself . . Vital Signs/Physical Exam: Temp Pulse Resp BP Pulse Ox 97.3 F 89 18 112/58 L 97 08/03/19 08:00 08/03/19 08:00 08/03/19 08:00 08/03/19 08:00 08/03/19 08:00 General: Alert, In no apparent distress HEENT: Atraumatic, Normocephalic Neck: Supple Respiratory: Clear to auscultation bilaterally, Normal air movement Cardiovascular: Normal pulses, Regular rate/rhythm Capillary refill: <2 Seconds Gastrointestinal: Soft and benign, W/out hepatosplenomegaly Musculoskeletal: No clubbing Integumentary: No rashes Neurological: Normal speech, Normal strength at 5/5 x4 extr Lymphatics: No axilla or inguinal lymphadenopathy Laboratory Data at Discharge: WBC 8.7 K/uL (4.3-10.9) 08/03/19 05:16 Hgb 13.0 g/dL (12.0-15.0) 08/03/19 05:16 Hct 38.7 % (36.0-45.0) 08/03/19 05:16 Plt Count 217 K/uL (152-406) 08/03/19 05:16 PT 11.6 SECONDS (9.5-12.5) 08/02/19 05:24 INR 0.98 08/02/19 05:24 Sodium 137 mmol/L (136-145) 08/03/19 05:16 Potassium 4.0 mmol/L (3.5-5.1) 08/03/19 05:16 BUN 7 mg/dL (7-18) 08/03/19 05:16 Creatinine 0.72 mg/dL (0.55-1.3) 08/03/19 05:16 Glucose 91 mg/dL (74-106) 08/03/19 05:16 Phosphorus 3.3 mg/dL (2.5-4.9) 08/02/19 05:24 Magnesium 2.1 mg/dL (1.8-2.4) 08/01/19 16:18 Total Bilirubin 0.2 mg/dL (0.2-1.0) 08/02/19 05:24 AST 93 U/L (15-37) H 08/02/19 05:24 ALT 147 U/L (12-78) H 08/02/19 05:24 Alkaline Phosphatase 91 U/L (45-117) 08/02/19 05:24 Triglycerides 279 mg/dL (<150) H 08/02/19 05:24 Cholesterol 170 mg/dL (<200) 08/02/19 05:24 HDL Cholesterol 39 mg/dL (40-60) L 08/02/19 05:24 Cholesterol/HDL Ratio 4.36 08/02/19 05:24 Lipase 84 U/L (73-393) 08/01/19 16:18 Home Medications: RX: Metoprolol Tartrate [Lopressor*] 1 tab PO DAILY 08/01/19 RX: Apixaban [Eliquis *] 5 mg PO BID 30 Days tablet 08/03/19 RX: Apixaban [Eliquis] 10 mg PO BID #10 tablet 08/03/19 New Medications: RX: Apixaban [Eliquis *] 5 mg PO BID 30 Days tablet RX: Apixaban [Eliquis] 10 mg PO BID #10 tablet Diet: AHA Activity: Ad julee Followup: [facility] [ALLIED HEALTH PROFESSIONAL] - 1 Week (call to schedule an appointment) Time spent managing pt's care (in minutes): 38
[2019-08-03 09:46] VITALS: O2SAT 95
== END 2019-08-03 10:47 | disposition home or self-care (01) | DRG 176 ==
LOC: ER 15:44 → ERHOLD 18:24 → INTOOBSV 18:24 → 4TH 19:46 → OBSVTOIN 08-03 08:45
PROVIDERS: ADMIT Family Medicine; ATTEND Family Medicine
DX: I26.99 Other pulmonary embolism without acute cor pulmonale (principal); T38.4X5A Adverse effect of oral contraceptives, initial encounter; Y92.9 Unspecified place or not applicable
CPT/HCPCS: 36415; 71045; 71275; 74177; 80048; 80053; 80061; 80076; 81003; 81025; 81241; 83690; 83735; 83880; 84100; 84484; 85025; 85379; 85610; 86021; 86038; 86308; 87804; 90471; 93005; 93306; 93970; 94760; 96360; 96361; 96372; 99285; G0378; J1650; J2405; J7030; Q2035; Q9967

== ENCOUNTER 2019-08-13 18:52 | Emergency (ER) | payer SELFPAY ==
[2019-08-13] MEDS ORDERED: NA CHLORIDE 0.9% 1,000 ML ONE (19:17)
--- NOTE | 2019-08-13 20:04 | RAD REPORT ---
EXAM DESCRIPTION: RAD - Chest Single View - 08/13/2019 7:39 pm CLINICAL HISTORY: CHEST PAIN Chest pain. COMPARISON: Chest Single View dated 08/01/2019 FINDINGS: Portable technique limits examination quality. The lungs are grossly clear. The heart is normal in size. No displaced fractures. IMPRESSION: No acute intrathoracic process suspected.
[2019-08-13 20:19] LABS: Absolute Lymphocytes (CBC) 4.7 K/uL (0.7-4.9); Basophils % 0.5 % (0-1.3); Hematocrit 40.3 % (36.0-45.0); Lymphocytes % 57.2 % (15.3-44.8); MPV 7.9 fL (7.6-11.3); RBC Red Blood Cell Count 4.36 M/uL (3.86-4.86)
[2019-08-13 20:34] LABS: ALT/SGPT 85 U/L (12-78); AST/SGOT 39 U/L (15-37); Albumin 3.3 g/dL (3.4-5.0); Alkaline Phosphatase 79 U/L (45-117); BUN Blood Urea Nitrogen 11 mg/dL (7-18); Bicarbonate 27 mmol/L (21-32); Bilirubin Direct < 0.1 mg/dL (0-0.2); Bilirubin Total 0.2 mg/dL (0.2-1.0); Glucose Level 106 mg/dL (74-106); NT PRO-BNP 30 pg/mL (<125); Potassium 3.8 mmol/L (3.5-5.1); Protein, Total 7.5 g/dL (6.4-8.2); Sodium Level 139 mmol/L (136-145); Troponin (Emerg Dept Use Only) < 0.02 ng/mL (0.0-0.045)
[2019-08-13 20:35] LABS: Lipase 101 U/L (73-393); Magnesium 2.1 mg/dL (1.8-2.4)
[2019-08-13 20:47] LABS: Protime INR 1.02
[2019-08-13 21:12] LABS: Urine Blood 2+ (NEG); Urine Glucose NEGATIVE (NEG); Urine Protein NEGATIVE (NEG); Urine Specific Gravity 1.015 (1.005-1.030); Urine pH 6.5 (5.0-7.0)
--- NOTE | 2019-08-13 21:15 | EDPHYS ---
Physician Documentation [facility] Name: Fatuma Steele Age: 38 yrs Sex: Female : 1980 Arrival Date: 08/13/2019 Time: 18:53 Bed 15 Private MD: ED Physician Bridger Haynes HPI: 20:03 This 38 yrs old Female presents to ER via Ambulatory with complaints of Chest jr8 Pain. 20:03 The patient or guardian reports chest pain that is located primarily in the anterior jr8 chest wall, bilaterally. Onset: gradually, 2 day(s) ago. The pain does not radiate. Associated signs and symptoms: Pertinent positives: palpitations, shortness of breath. The chest pain is described as a heaviness. Duration: The patient or guardian reports multiple episodes. Modifying factors: The symptoms are alleviated by nothing. the symptoms are aggravated by exertion. Severity of pain: At its worst the pain was mild in the emergency department the pain is unchanged. The patient has not experienced similar symptoms in the past. The patient has been recently seen by a physician:. Patient recently diagnosed with Pulmonary Embolus and was put on Eliquis. Was released home and has since been back to work. Stated that anytime she exerts herself with have some mild chest tightness and shortness of breath. Also with occasional palpitations. Wants to make sure she is ok . Historical: - Allergies: 19:17 Sulfa (Sulfonamide Antibiotics); ea 19:17 PENICILLINS; ea - Home Meds: 19:17 apixaban oral oral [Active]; ea - PMHx: 19:17 Hypertension; Depression; Anxiety; ea - PSHx: 19:17 None; ea - Immunization history:: Adult Immunizations up to date. - Social history:: Smoking status: Patient reports the use of cigarette tobacco products, 3 cigarettes per day . ROS: 20:03 Eyes: Negative for injury, pain, redness, and discharge, ENT: Negative for injury, jr8 pain, and discharge, Neck: Negative for injury, pain, and swelling, Abdomen/GI: Negative for abdominal pain, nausea, vomiting, diarrhea, and constipation, Back: Negative for injury and pain, MS/Extremity: Negative for injury and deformity, Skin: Negative for injury, rash, and discoloration, Neuro: Negative for headache, weakness, numbness, tingling, and seizure. 20:03 Cardiovascular: Positive for chest pain, palpitations. 20:03 Respiratory: Positive for shortness of breath. Exam: 20:03 Eyes: Pupils equal round and reactive to light, extra-ocular motions intact. Lids and jr8 lashes normal. Conjunctiva and sclera are non-icteric and not injected. Cornea within normal limits. Periorbital areas with no swelling, redness, or edema. ENT: Nares patent. No nasal discharge, no septal abnormalities noted. Tympanic membranes are normal and external auditory canals are clear. Oropharynx with no redness, swelling, or masses, exudates, or evidence of obstruction, uvula midline. Mucous membranes moist. Neck: Trachea midline, no thyromegaly or masses palpated, and no cervical lymphadenopathy. Supple, full range of motion without nuchal rigidity, or vertebral point tenderness. No Meningismus. Cardiovascular: Regular rate and rhythm with a normal S1 and S2. No gallops, murmurs, or rubs. Normal PMI, no JVD. No pulse deficits. Respiratory: Lungs have equal breath sounds bilaterally, clear to auscultation and percussion. No rales, rhonchi or wheezes noted. No increased work of breathing, no retractions or nasal flaring. Abdomen/GI: Soft, non-tender, with normal bowel sounds. No distension or tympany. No guarding or rebound. No evidence of tenderness throughout. Back: No spinal tenderness. No costovertebral tenderness. Full range of motion. Skin: Warm, dry with normal turgor. Normal color with no rashes, no lesions, and no evidence of cellulitis. MS/ Extremity: Pulses equal, no cyanosis. Neurovascular intact. Full, normal range of motion. Neuro: Awake and alert, GCS 15, oriented to person, place, time, and situation. Cranial nerves II-XII grossly intact. Motor strength 5/5 in all extremities. Sensory grossly intact. Cerebellar exam normal. Normal gait. Vital Signs: 19:12 BP 137 / 111; Pulse 86; Resp 18; Temp 98.2; Pulse Ox 98% ; Weight 107.5 kg; Height 5 ea ft. 9 in. (175.26 cm); 20:00 BP 127 / 75; Pulse 88; Resp 16; Temp 98.4; Pulse Ox 97% ; Pain 4/10; fu 20:30 BP 103 / 80; Pulse 86; Resp 12; Pulse Ox 99% ; fu 21:00 BP 117 / 78; Pulse 86; Resp 12; Pulse Ox 98% on R/A; fu 19:12 Body Mass Index 35.00 (107.50 kg, 175.26 cm) ea MDM: 19:08 Patient medically screened. jr8 21:09 Data reviewed: vital signs, nurses notes, lab test result(s), EKG, radiologic studies, jr8 plain films. Data interpreted: Pulse oximetry: on room air is 97 %. Interpretation: normal. Counseling: I had a detailed discussion with the patient and/or guardian regarding: the historical points, exam findings, and any diagnostic results supporting the discharge/admit diagnosis, lab results, radiology results, the need for outpatient follow up, a family practitioner, to return to the emergency department if symptoms worsen or persist or if there are any questions or concerns that arise at home. 19:05 Order name: Basic Metabolic Panel; Complete [facility]: [facility] 19:05 Order name: CBC with Diff [facility] 19:05 Order name: LFT's; Complete Time: 20:49 [facility] 19:05 Order name: Magnesium; Complete Time: 20:49 [facility] 19:05 Order name: NT PRO-BNP; Complete Time: 20:49 [facility] 19:05 Order name: PT-INR; Complete Time: 21:09 [facility] 19:05 Order name: Troponin (emerg Dept Use Only); Complete Time: 20:49 [facility] 19:05 Order name: XRAY Chest (1 view); Complete Time: 20:06 [facility] 19:05 Order name: Lipase; Complete Time: 20:49 [facility] 20:35 Order name: Manual Differential EDMS 20:52 Order name: Urine Dipstick--Ancillary (enter results); Complete Time: 21:20 [facility] 20:52 Order name: Urine --Ancillary (enter results); Complete Time: 21:20 [facility] 19:05 Order name: EKG; Complete Time: 19:06 [facility] 19:05 Order name: Cardiac monitoring; Complete Time: 19:48 [facility] 19:05 Order name: EKG - Nurse/Tech; Complete Time: 19:49 [facility] 19:05 Order name: IV Saline Lock; Complete Time: 19:48 [facility] 19:05 Order name: Labs collected and sent; Complete Time: 19:48 [facility] 19:05 Order name: O2 Per Protocol; Complete Time: 19:48 [facility] 19:05 Order name: O2 Sat Monitoring; Complete Time: 19:48 [facility] 19:05 Order name: Urine Dipstick-Ancillary (obtain specimen); Complete Time: 19:48 [facility] Administered Medications: 19:10 Not Given (Physician Discretion): Aspirin 162 mg PO once [facility] 19:47 Drug: NS 0.9% 1000 ml Route: IV; Rate: 125 ml/hr; Site: left forearm; fu 21:37 Follow up: Response: No adverse reaction fu Disposition: 08/13 18:05 I agree with the assessment and plan of care. [facility] Disposition: 08/13/19 21:15 Discharged to Home. Impression: Chest pain, unspecified. - Condition is Stable. - Discharge Instructions: Nonspecific Chest Pain. - Prescriptions for omeprazole 40 mg Oral capsule,delayed release(DR/EC) - take 1 capsule by ORAL route once daily before a meal; 30 capsule. - Work release form, Medication Reconciliation Form, Thank You Letter, Antibiotic Education, Prescription Opioid Use form. - Follow up: Private Physician; When: 1 - 2 days; Reason: Recheck today's complaints, Continuance of care, Re-evaluation by your physician. - Problem is new. - Symptoms have improved. Signatures: Dispatcher [employer] EDME Bridger Haynes MD MD cha Roszak, Josh, PA PA [facility] Yvonne Mejia RN RN ea Umadhay, Felix, RN RN fu Corrections: (The following items were deleted from the chart) 20:15 19:06 URINE DRUG SCREEN+CHEM UR.LAB.BRZ ordered. [facility] 20:15 20:13 URINE DRUG SCREEN+CHEM UR.LAB.BRZ reviewed. jr8 [facility] 21:41 21:15 08/13/2019 21:15 Discharged to Home. Impression: Chest pain, unspecified. fu Condition is Stable. Forms are Medication Reconciliation Form, Thank You Letter, Antibiotic Education, Prescription Opioid Use. Follow up: Private Physician; When: 1 - 2 days; Reason: Recheck today's complaints, Continuance of care, Re-evaluation by your physician. Problem is new. Symptoms have improved. jr8
--- NOTE | 2019-08-13 21:15 | ER ---
Nurse's Notes [facility] Name: Fatuma Steele Age: 38 yrs Sex: Female : 1980 Arrival Date: 08/13/2019 Time: 18:53 Bed 15 Private MD: Diagnosis: Chest pain, unspecified Presentation: 19:12 Chief complaint: Patient states: Reports she was diagnosed with a PE 2 weeks ago, ea reports she was SOB, headache and palpitations. Pt reports starting Eliquis when she was admitted. Coronavirus screen: The patient has NOT traveled to [place] in the past 14 days. Ebola Screen: No symptoms or risks identified at this time. Initial Sepsis Screen: Does the patient meet any 2 criteria? No. Patient's initial sepsis screen is negative. Does the patient have a suspected source of infection? No. Patient's initial sepsis screen is negative. Risk Assessment: Do you want to hurt yourself or someone else? Patient reports no desire to harm self or others. 19:12 Method Of Arrival: Ambulatory ea 19:12 Acuity: YON 3 ea Triage Assessment: 19:16 General: Appears in no apparent distress. Behavior is appropriate for age. Pain: ea Complains of pain in chest. Cardiovascular: Parent/caregiver reports patient has had palpitations, shortness of breath. Historical: - Allergies: 19:17 Sulfa (Sulfonamide Antibiotics); ea 19:17 PENICILLINS; ea - Home Meds: 19:17 apixaban oral oral [Active]; ea - PMHx: 19:17 Hypertension; Depression; Anxiety; ea - PSHx: 19:17 None; ea - Immunization history:: Adult Immunizations up to date. - Social history:: Smoking status: Patient reports the use of cigarette tobacco products, 3 cigarettes per day . Screenin:15 Abuse screen: Denies threats or abuse. Nutritional screening: No deficits noted. ea Tuberculosis screening: No symptoms or risk factors identified. Fall Risk None identified. Assessment: 19:00 General: Appears in no apparent distress. Behavior is calm, cooperative, appropriate fu for age, Denies fever, chills. Pain: Complains of pain in chest Pain does not radiate. Pain currently is 4 out of 10 on a pain scale. Quality of pain is described as sharp, Pain began 1 day ago. Is intermittent. Neuro: Level of Consciousness is awake, alert, obeys commands, Oriented to person, place, time, situation. Cardiovascular: Reports palpitations. Respiratory: Reports shortness of breath Airway is patent Breath sounds are clear bilaterally. GI: Reports chronic heartburn. : No signs and/or symptoms were reported regarding the genitourinary system. EENT: No signs and/or symptoms were reported regarding the EENT system. 20:00 Reassessment: Patient and/or family updated on plan of care and expected duration. Pain fu level reassessed. Patient is alert, oriented x 3, equal unlabored respirations, skin warm/dry/pink. patient resting in bed, IVF ongoing, awaiting for results. 21:18 Reassessment: Patient and/or family updated on plan of care and expected duration. Pain fu level reassessed. Patient is alert, oriented x 3, equal unlabored respirations, skin warm/dry/pink. 21:30 Reassessment: Patient and/or family updated on plan of care and expected duration. Pain fu level reassessed. Patient is alert, oriented x 3, equal unlabored respirations, skin warm/dry/pink. ARMANDO Stanton in patient's room talking to the patient. Vital Signs: 19:12 BP 137 / 111; Pulse 86; Resp 18; Temp 98.2; Pulse Ox 98% ; Weight 107.5 kg; Height 5 ea ft. 9 in. (175.26 cm); 20:00 BP 127 / 75; Pulse 88; Resp 16; Temp 98.4; Pulse Ox 97% ; Pain 4/10; fu 20:30 BP 103 / 80; Pulse 86; Resp 12; Pulse Ox 99% ; fu 21:00 BP 117 / 78; Pulse 86; Resp 12; Pulse Ox 98% on R/A; fu 19:12 Body Mass Index 35.00 (107.50 kg, 175.26 cm) ea ED Course: 18:53 Patient arrived in ED. cl3 18:59 Harmeet Shah, KALEN is Primary Nurse. fu 19:08 Maximino Pelletier PA is PHCP. jr8 19:08 Bridger Haynes MD is Attending Physician. jr8 19:15 Triage completed. ea 19:15 Patient has correct armband on for positive identification. Bed in low position. ea environmental monitoring specialist on. Pulse ox on. NIBP on. 19:15 Arm band placed on right wrist. Patient placed in an exam room, on a stretcher, on ea pulse oximetry. 19:15 Inserted saline lock: in left forearm, using aseptic technique. Blood collected. fu 19:16 Patient maintains SpO2 saturation greater than 95% on room air. ea 19:39 XRAY Chest (1 view) In Process Unspecified. EDMS 21:36 No provider procedures requiring assistance completed. IV discontinued, bleeding fu controlled, Pressure dressing applied. Administered Medications: 19:10 Not Given (Physician Discretion): Aspirin 162 mg PO once jr8 19:47 Drug: NS 0.9% 1000 ml Route: IV; Rate: 125 ml/hr; Site: left forearm; fu 21:37 Follow up: Response: No adverse reaction fu Outcome: 21:15 Discharge ordered by MD. scott 21:39 Discharged to home ambulatory. fu 21:39 Condition: stable 21:39 Discharge instructions given to patient, Instructed on discharge instructions, Demonstrated understanding of instructions, follow-up care, medications, Prescriptions given X 1. 21:41 Patient left the ED. fu Signatures: Dispatcher [employer] EDMS aMximino Pelletier PA PA jr8 Yvonne Mejia, RN RN Harmeet Heredia, RN RN Corin Mariscal cl3
[2019-08-13 21:47] VITALS: TEMP 98.4
[2019-08-13 21:50] VITALS: BP 117/78; O2SAT 98
[2019-08-13 22:09] LABS: Blood Morphology Comment NOT SEEN (NOT SEEN); Platelet Estimate ADEQ
== END 2019-08-13 21:41 | disposition home or self-care (01) ==
LOC: ER 18:52
DX: R07.9 Chest pain, unspecified (principal); Z88.0 Allergy status to penicillin; Z88.2 Allergy status to sulfonamides; F17.210 Nicotine dependence, cigarettes, uncomplicated
CPT/HCPCS: 36415; 71045; 80048; 80076; 81003; 81025; 83690; 83735; 83880; 84484; 85025; 85610; 99285; J7030

== ENCOUNTER 2019-09-12 11:30 | Emergency (ER) | payer SELFPAY ==
[2019-09-12] MEDS ORDERED: NA CHLORIDE 0.9% 1,000 ML ONE (12:04)
[2019-09-12 12:28] LABS: Absolute Lymphocytes (CBC) 2.1 K/uL (0.7-4.9); Basophils % 0.5 % (0-1.3); Hematocrit 41.8 % (36.0-45.0); Lymphocytes % 34.6 % (15.3-44.8); MPV 7.6 fL (7.6-11.3); RBC Red Blood Cell Count 4.54 M/uL (3.86-4.86)
[2019-09-12 12:34] LABS: Protime INR 1.1
--- NOTE | 2019-09-12 12:42 | RAD REPORT ---
EXAM DESCRIPTION: RAD - Chest Single View - 09/12/2019 12:36 pm CLINICAL HISTORY: r/o pneumonia Chest pain. COMPARISON: Chest Single View dated 08/13/2019; Chest Single View dated 08/01/2019 FINDINGS: Portable technique limits examination quality. The lungs are grossly clear. The heart is upper limit of normal in size. No displaced fractures. IMPRESSION: No acute intrathoracic process suspected.
[2019-09-12 13:04] LABS: ALT/SGPT 50 U/L (12-78); AST/SGOT 25 U/L (15-37); Albumin 3.6 g/dL (3.4-5.0); Alkaline Phosphatase 70 U/L (45-117); BUN Blood Urea Nitrogen 8 mg/dL (7-18); Bicarbonate 28 mmol/L (21-32); Bilirubin Direct < 0.1 mg/dL (0-0.2); Bilirubin Total 0.3 mg/dL (0.2-1.0); Glucose Level 102 mg/dL (74-106); Lipase 89 U/L (73-393); Magnesium 2.2 mg/dL (1.8-2.4); NT PRO-BNP 26 pg/mL (<125); Protein, Total 7.4 g/dL (6.4-8.2); Sodium Level 139 mmol/L (136-145); Troponin (Emerg Dept Use Only) < 0.02 ng/mL (0.0-0.045)
--- NOTE | 2019-09-12 13:42 | RAD REPORT ---
EXAM DESCRIPTION: CT - Chest For Pe Angio - 09/12/2019 1:34 pm CLINICAL HISTORY: Chest pain. Chest pain;Dyspnea COMPARISON: Chest For Pe Angio dated 08/01/2019 TECHNIQUE: CT angiogram of the pulmonary arteries was performed with MIP. All CT scans are performed using dose optimization technique as appropriate and may include automated exposure control or mA/KV adjustment according to patient size. FINDINGS: No evidence of pulmonary thromboembolism. No acute aortic finding demonstrated. The lungs are clear. No significant pericardial or pleural fluid. No concerning bony finding. IMPRESSION: No evidence of pulmonary thromboembolism. No acute lung findings.
--- NOTE | 2019-09-12 13:54 | ER ---
Nurse's Notes [facility] Name: Fatuma Steele Age: 38 yrs Sex: Female : 1980 Arrival Date: 09/12/2019 Time: 11:32 Bed 20 Private MD: Diagnosis: Dyspnea;Anxiety disorder, unspecified Presentation: 09/11 11:36 Chief complaint: Patient states: "I feel like I can't catch my breath.", reports having jl7 a PE a month and a half ago, takes Eliquis, woke yesterday feeling short of breath with a little chest pressure. Denies fever, reports cough and congestion x 1 week states "I feel like I have concrete in my lungs.". Coronavirus screen: Surgical mask placed on patient. Patient moved to private room, placed in contact and droplet isolation with eye protection until further assessment. Patient reports a cough. Patient reports shortness of breath or difficulty breathing. Patient denies measured and/or subjective temperature greater than 100.4F. Patient denies travel on a cruise ship or to a country the [facility] currently lists as an affected area. Patient denies contact with known and/or suspected case of COVID-19. Ebola Screen: No symptoms or risks identified at this time. Initial Sepsis Screen: Does the patient meet any 2 criteria? No. Patient's initial sepsis screen is negative. Does the patient have a suspected source of infection? No. Patient's initial sepsis screen is negative. Risk Assessment: Do you want to hurt yourself or someone else? Patient reports no desire to harm self or others. Onset of symptoms was September 11, 2019. 11:36 Method Of Arrival: Ambulatory jl7 11:36 Acuity: YON 3 jl7 Triage Assessment: 11:41 General: Appears in no apparent distress. uncomfortable, Behavior is cooperative, jl7 appropriate for age, anxious. Pain: Denies pain. Respiratory: Reports shortness of breath Onset: The symptoms/episode began/occurred yesterday, the patient has mild shortness of breath. SIGNS CLEANER: 11:41 LMP 09/04/2019 jl7 Historical: - Allergies: 11:41 PENICILLINS; jl7 11:41 Sulfa (Sulfonamide Antibiotics); jl7 - Home Meds: 11:41 Metoprolol Tartrate Oral [Active]; Eliquis 5 mg oral tab 1 tab [Active]; jl7 - PMHx: 11:41 Anxiety; Depression; Hypertension; jl7 - PSHx: 11:41 None; jl7 - Immunization history:: Adult Immunizations up to date. - Social history:: Smoking status: Patient reports the use of cigarette tobacco products, smokes one-half pack cigarettes per day. - Family history:: not pertinent. Screenin:44 Abuse screen: Denies threats or abuse. Nutritional screening: No deficits noted. em Tuberculosis screening: No symptoms or risk factors identified. Fall Risk None identified. Assessment: 12:00 General: Appears in no apparent distress. comfortable, Behavior is calm, cooperative, em Denies fever. Pain: Denies pain. Neuro: Level of Consciousness is awake, alert, obeys commands, Oriented to person, place, time, situation, Appropriate for age. Cardiovascular: Denies chest pain, Capillary refill < 3 seconds Patient's skin is warm and dry. Rhythm is sinus rhythm. Respiratory: Reports shortness of breath at rest Airway is patent Respiratory effort is even, unlabored, Respiratory pattern is regular, symmetrical, Breath sounds are clear bilaterally. Denies cough. GI: Patient currently denies nausea, vomiting. Derm: Skin is intact, is healthy with good turgor, Skin is pink, warm \\T\\ dry. Musculoskeletal: Capillary refill < 3 seconds, Range of motion: intact in all extremities. 13:00 Reassessment: Patient appears in no apparent distress at this time. Patient and/or em family updated on plan of care and expected duration. Pain level reassessed. Patient is alert, oriented x 3, equal unlabored respirations, skin warm/dry/pink. Vital Signs: 11:36 BP 120 / 72; Pulse 87; Resp 19; Temp 98.6; Pulse Ox 97% ; Weight 107.95 kg; Height 5 7 ft. 9 in. (175.26 cm); Pain 0/10; 12:45 BP 114 / 74; Pulse 61; Resp 18; Pulse Ox 99% on R/A; em 13:57 BP 131 / 74; Pulse 65; Resp 18; Pulse Ox 99% on R/A; Pain 0/10; em 11:36 Body Mass Index 35.15 (107.95 kg, 175.26 cm) [facility] ED Course: 11:32 Patient arrived in ED. ag5 11:37 Bridger Haynes MD is Attending Physician. [facility] 11:40 Triage completed. jl7 11:41 Arm band placed on right wrist. jl7 11:42 Jacob Tamez, RN is Primary Nurse. em 11:44 Patient has correct armband on for positive identification. Placed in gown. Bed in low em position. Call light in reach. 12:20 Initial lab(s) drawn, by me, sent to lab. Inserted saline lock: 20 gauge in right em antecubital area, using aseptic technique. Blood collected. 12:41 Chest Single View In Process Unspecified. EDMS 13:34 CT Chest For PE Angio In Process Unspecified. EDMS 14:03 No provider procedures requiring assistance completed. IV discontinued, intact, em bleeding controlled, No redness/swelling at site. Pressure dressing applied. Administered Medications: 12:10 Drug: NS 0.9% 1000 ml Route: IV; Rate: 125 ml/hr; Site: right antecubital; em 14:13 Follow up: IV Status: Order to discontinue infusion; IV Intake: 200ml em Intake: 14:13 IV: 200ml; Total: 200ml. em Outcome: 13:53 Discharge ordered by . [facility] 14:09 Discharged to home ambulatory. em 14:09 Condition: good 14:09 Discharge instructions given to patient, Instructed on discharge instructions, follow up and referral plans. Demonstrated understanding of instructions, follow-up care. 14:14 Patient left the ED. em Signatures: Dispatcher [employer] Bridger Orta MD MD cha Munoz, Edgar, RN RN em Patricia Bates RN RN [facility] Sania Berrios 5
--- NOTE | 2019-09-12 13:54 | EDPHYS ---
Physician Documentation [facility] Name: Fatuma Steele Age: 38 yrs Sex: Female : 1980 Arrival Date: 09/12/2019 Time: 11:32 Bed 20 Private MD: ED Physician Bridger Haynes HPI: 09/11 12:02 This 38 yrs old Female presents to ER via Ambulatory with complaints of marylu Breathing Difficulty, Chest Pressure. 12:02 The patient has shortness of breath at rest, with light activity. Onset: The marylu symptoms/episode began/occurred 2 day(s) ago. Duration: The symptoms are continuous, and are unchanged since they started. The patient's shortness of breath is aggravated by nothing, coughing, is alleviated by nothing. Associated signs and symptoms: Pertinent positives: non-productive cough. Severity of symptoms: At their worst the symptoms were mild in the emergency department the symptoms are unchanged. The patient has not experienced similar symptoms in the past. 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 - Social history:: Smoking status: Patient reports the use of cigarette tobacco products, smokes one-half pack cigarettes per day. - Family history:: not pertinent. ROS: 12:02 Constitutional: Negative for fever, chills, and weight loss, Eyes: Negative for injury, marylu pain, redness, and discharge, ENT: Negative for injury, pain, and discharge, Neck: Negative for injury, pain, and swelling, Cardiovascular: Negative for chest pain, palpitations, and edema, Abdomen/GI: Negative for abdominal pain, nausea, vomiting, diarrhea, and constipation, Back: Negative for injury and pain, : Negative for injury, bleeding, discharge, and swelling, MS/Extremity: Negative for injury and deformity, Skin: Negative for injury, rash, and discoloration, Neuro: Negative for headache, weakness, numbness, tingling, and seizure. 12:02 Respiratory: Positive for cough, shortness of breath, at rest. Exam: 12:02 Constitutional: This is a well developed, well nourished patient who is awake, alert, marylu and in no acute distress. Head/Face: Normocephalic, atraumatic. Eyes: Pupils equal round and reactive to light, extra-ocular motions intact. Lids and lashes normal. Conjunctiva and sclera are non-icteric and not injected. Cornea within normal limits. Periorbital areas with no swelling, redness, or edema. ENT: Nares patent. No nasal discharge, no septal abnormalities noted. Tympanic membranes are normal and external auditory canals are clear. Oropharynx with no redness, swelling, or masses, exudates, or evidence of obstruction, uvula midline. Mucous membranes moist. Neck: Trachea midline, no thyromegaly or masses palpated, and no cervical lymphadenopathy. Supple, full range of motion without nuchal rigidity, or vertebral point tenderness. No Meningismus. Chest/axilla: Normal chest wall appearance and motion. Nontender with no deformity. No lesions are appreciated. Cardiovascular: Regular rate and rhythm with a normal S1 and S2. No gallops, murmurs, or rubs. Normal PMI, no JVD. No pulse deficits. Respiratory: Lungs have equal breath sounds bilaterally, clear to auscultation and percussion. No rales, rhonchi or wheezes noted. No increased work of breathing, no retractions or nasal flaring. Abdomen/GI: Soft, non-tender, with normal bowel sounds. No distension or tympany. No guarding or rebound. No evidence of tenderness throughout. Back: No spinal tenderness. No costovertebral tenderness. Full range of motion. Skin: Warm, dry with normal turgor. Normal color with no rashes, no lesions, and no evidence of cellulitis. MS/ Extremity: Pulses equal, no cyanosis. Neurovascular intact. Full, normal range of motion. Neuro: Awake and alert, GCS 15, oriented to person, place, time, and situation. Cranial nerves II-XII grossly intact. Motor strength 5/5 in all extremities. Sensory grossly intact. Cerebellar exam normal. Normal gait. Psych: Awake, alert, with orientation to person, place and time. Behavior, mood, and affect are within normal limits. 12:02 Musculoskeletal/extremity: DVT Exam: No signs of deep vein thrombosis. no pain, no swelling, no tenderness, negative Homans' sign noted on exam, no appreciated bluish discoloration, no erythema, no increased warmth. Vital Signs: 11:36 BP 120 / 72; Pulse 87; Resp 19; Temp 98.6; Pulse Ox 97% ; Weight 107.95 kg; Height 5 jl7 ft. 9 in. (175.26 cm); Pain 0/10; 12:45 BP 114 / 74; Pulse 61; Resp 18; Pulse Ox 99% on R/A; em 13:57 BP 131 / 74; Pulse 65; Resp 18; Pulse Ox 99% on R/A; Pain 0/10; em 11:36 Body Mass Index 35.15 (107.95 kg, 175.26 cm) jl7 MDM: 11:46 Patient medically screened. [facility] 12:05 Data reviewed: vital signs, nurses notes, lab test result(s), EKG, radiologic studies, [facility] CT scan, plain films. 09/11 12:35 Order name: Protime (+INR); Complete Time: 12:48 [facility] 09/11 13:04 Order name: Basic Metabolic Panel; Complete Time: 13:21 [facility] 09/11 13:04 Order name: Liver (Hepatic) Function; Complete Time: 13:21 [facility] 09/11 13:04 Order name: Troponin (Emerg Dept Use Only); Complete Time: 13:21 [facility] 09/11 13:04 Order name: NT PRO-BNP; Complete Time: 13:21 [facility] 09/11 11:48 Order name: EKG; Complete Time: 12:33 [facility] 09/11 11:48 Order name: Cardiac monitoring; Complete Time: 11:58 [facility] 09/11 11:48 Order name: EKG - Nurse/Tech; Complete Time: 11:58 [facility] 09/11 11:48 Order name: IV Saline Lock; Complete Time: 12:25 [facility] 09/11 11:48 Order name: Labs collected and sent; Complete Time: 11:57 [facility] 09/11 11:48 Order name: O2 Per Protocol; Complete Time: 11:57 [facility] 09/11 11:48 Order name: O2 Sat Monitoring; Complete Time: 11:57 [facility] 09/11 11:48 Order name: CT Chest For PE Angio; Complete Time: 13:52 [facility] 09/11 12:41 Order name: Chest Single View; Complete Time: 12:48 [facility] 09/11 13:04 Order name: Magnesium; Complete Time: 13:21 [facility] 09/11 13:04 Order name: Lipase; Complete Time: 13:21 [facility] 09/11 13:55 Order name: Urine Dipstick--Ancillary (enter results) 09/11 13:55 Order name: Urine --Ancillary (enter results) 09/11 11:48 Order name: Urine Dipstick-Ancillary (obtain specimen); Complete Time: 13:51 [facility] 09/11 11:48 Order name: Urine Test (obtain specimen); Complete Time: 13:52 [facility] Administered Medications: 12:10 Drug: NS 0.9% 1000 ml Route: IV; Rate: 125 ml/hr; Site: right antecubital; em 14:13 Follow up: IV Status: Order to discontinue infusion; IV Intake: 200ml em Disposition: 09/12/19 13:53 Discharged to Home. Impression: Dyspnea, Anxiety disorder, unspecified. - Condition is Stable. - Discharge Instructions: Shortness of Breath, Shortness of Breath, [id number], Generalized Anxiety Disorder. - Medication Reconciliation Form, Thank You Letter, Antibiotic Education, Prescription Opioid Use form. - Follow up: Private Physician; When: 2 - 3 days; Reason: Recheck today's complaints, Continuance of care, Re-evaluation by your physician. - Problem is new. - Symptoms have improved. Signatures: Dispatcher [employer] [facility] Bridger Haynes MD MD cha Munoz, Edgar, RN RN Patricia Bates RN RN jl7 Corrections: (The following items were deleted from the chart) 12:41 12:41 Chest For Pe Angio ordered. [facility] EDMS 12:41 12:41 Chest For Pe Angio ordered. [facility] EDMS 12:42 12:33 Chest Single View+RAD.RAD.BRZ ordered. [facility] EDMS 12:55 12:32 BASIC METABOLIC PANEL+C.LAB.BRZ ordered. [facility] EDMS 12:55 12:32 HEPATIC FUNCTION+C.LAB.BRZ ordered. [facility] EDMS 12:55 12:32 MAGNESIUM+C.LAB.BRZ ordered. [facility] EDMS 12:55 12:32 PROBNP+C.LAB.BRZ ordered. [facility] 12:55 12:32 TROPONIN (EMERG DEPT USE ONLY)+C.LAB.BRZ ordered. [facility] ED[facility] 12:55 12:32 LIPASE+C.LAB.BRZ ordered. [facility] 12:57 12:32 CBC+H.LAB.BRZ ordered. [facility] 12:57 12:32 PROTIME (+INR)+COAG.LAB.BRZ ordered. [facility] EDOH 14:14 13:53 09/12/2019 13:53 Discharged to Home. Impression: Dyspnea; Anxiety disorder, em unspecified. Condition is Stable. Discharge Instructions: Shortness of Breath, Shortness of Breath, [id number]. Forms are Medication Reconciliation Form, Thank You Letter, Antibiotic Education, Prescription Opioid Use. Follow up: Private Physician; When: 2 - 3 days; Reason: Recheck today's complaints, Continuance of care, Re-evaluation by your physician. Problem is new. Symptoms have improved. marylu
[2019-09-12 13:57] LABS: Urine Blood NEGATIVE (NEG); Urine Glucose NEGATIVE (NEG); Urine Protein NEGATIVE (NEG)
[2019-09-12 14:23] VITALS: TEMP 98.6
[2019-09-12 14:25] VITALS: O2SAT 99
[2019-09-12 14:26] VITALS: BP 131/74
--- NOTE | 2019-09-13 10:29 | EKG ---
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
== END 2019-09-12 14:14 | disposition home or self-care (01) ==
LOC: ER 11:30
DX: F41.9 Anxiety disorder, unspecified (principal); I10 Essential (primary) hypertension; F17.210 Nicotine dependence, cigarettes, uncomplicated; Z88.0 Allergy status to penicillin; Z88.2 Allergy status to sulfonamides
CPT/HCPCS: 36415; 71045; 71275; 80048; 80076; 81003; 81025; 83690; 83735; 83880; 84484; 85025; 85610; 93005; 96360; 96361; 99284; J7030; Q9967